=== PATIENT | female | born 1950 | race Caucasian/White ===

== ENCOUNTER 2019-08-10 12:31 | Outpatient (CLI) | payer OTHER, SELFPAY ==
--- NOTE | ~2019-08-10 | MMUS_ITS ---
EXAMINATION: MM diagnostic mammo unilat LT, US breast LT limited HISTORY: Left breast mass on screening mammogram TECHNIQUE: Additional 3-D tomosynthesis images of the left breast were performed and synthetic 2-D im ages were generated. CAD analysis was submitted and interpreted. High resolution limited left breast ultrasound was performed. COMPARISON: 07/17/2019, 06/19/2017, 10/11/2015, 05/06/2014 FINDINGS: MAMMOGRAPHIC FINDINGS: There is a 5 mm oval, obscured, equal density mass in the middle/posterior third of the inner breast at the approximately 8:00 location 7 cm from the nipple. With spot compression, this has a similar ap pearance to prior mammograms. No associated architectural distortion or calcification are seen. ULTRASOUND: No suspicious sonographically detected masses identified with heart ultrasound. There appear to be sm all lymph nodes in the breast measuring up to 2 mm at the 8:00 location 1 cm from the nipple in the 9 :00 location 6 cm from the nipple. IMPRESSION: 1. No mammographic or sonographic evidence of malignancy. 2. Recommend routine screening mammography in one year. BI-RADS Category 2: Benign finding(s). Reviewed, dictated and finalized at location A. OGICAL AIDE IMPRESSION: 1. No mammographic or sonographic evidence of malignancy. 2. Recommend routine screening mammography in one year. BI-RADS Category 2: Benign finding(s).
== END 2019-08-10 12:32 | disposition home or self-care (01) ==
LOC: ANHIMG 12:32
PROVIDERS: PCP Family Medicine; Visit Provider Family Medicine
DX: R92.8 Other abnormal and inconclusive findings on diagnostic imaging of breast (principal)
CPT/HCPCS: 76642; 77065

== ENCOUNTER 2020-10-09 07:48 | Outpatient (CLI) | payer OTHER, SELFPAY ==
--- NOTE | ~2020-10-09 | MM_ITS ---
EXAMINATION: MM screening [facility] BI w nancy HISTORY: Screening mammogram TECHNIQUE: Craniocaudal and mediolateral oblique 3-D tomosynthesis images were obtained and synthetic 2-D images were generated. CAD analysis was submitted and interpreted. COMPARISON: 08/10/2019, 07/17/2019, 06/19/2017 BREAST PARENCHYMAL COMPOSITION: The breasts are heterogeneously dense, which may obscure small masses . FINDINGS: There is no evidence of suspicious mass, calcification, or architectural distortion to sugg est malignancy in either breast. There has been no suspicious interval change. IMPRESSION: 1. No mammographic evidence of malignancy. 2. Recommend routine screening mammography in one year. BI-RADS Category 1: Negative Reviewed, dictated and finalized at location A.
== END 2020-10-09 07:49 | disposition home or self-care (01) ==
PROVIDERS: PCP Family Medicine; Visit Provider Family Medicine
DX: Z12.31 Encounter for screening mammogram for malignant neoplasm of breast (principal)
CPT/HCPCS: 77063; 77067

== ENCOUNTER 2021-09-21 01:30 | Day surgery (SDC) | payer OTHER, SELFPAY ==
[2021-09-11 13:46] VITALS: BMI 25.8
--- NOTE | 2021-09-21 07:38 | P.PNAN_ITS ---
Anes - Initial Pre Proc Eval Procedure: Operation Date: 09/21/21 09:15 Proposed Procedures p Screening Colonoscopy - Alfredo Orourke MD Date/Time: 09/21/21 07:38 Surgeon: Alfredo Orourke MD Pre Op Diagnosis: family hx of colon polpys, neoplasm screening Patient Data Age: 71 Gender: F Height: 1.68 m Weight: 72.7 kg Allergies Allergy/AdvReac Type Severity Reaction Status Date / Time bee venom protein (honey bee) Allergy Unknown Swelling Verified 09/21/21 10:40 Home Medications Medication Instructions Recorded Confirmed Type fluoxetine 10 mg capsule 10 mg PO DAILY #90 cap 03/23/21 09/11/21 Rx lisinopril 5 mg tablet 5 mg PO DAILY #90 tablet 05/07/21 09/11/21 Rx triamcinolone acetonide 0.1 % 1 applic TOPICAL TID #30 g 07/31/21 09/11/21 Rx topical cream atorvastatin 20 mg tablet 20 mg PO DAILY #90 tablet 08/17/21 09/11/21 Rx Patient hx anesthesia problems: none Family hx anesthesia problems: none Results Review: All pre-operative results and documents have been reviewed as part of the pre-operative evaluation. [facility] Past Medical History Medical History Diverticulosis of colon (without mention of hemorrhage) Essential (primary) hypertension Mixed hyperlipidemia Overweight (BMI 25.0-29.9) Surgical History Surgical History H/O eye surgery (~12/2018) H/O eye surgery (~02/2019) Family History Family History Mother Family history of mental disorder Hypertension Family history of Alzheimer's disease Sibling Hypertension Father Family history of elevated blood lipids, Onset Age: 60 Family history of cardiovascular disease, Onset Age: 60 Cerebrovascular accident, Onset Age: 60 Family history of coronary artery disease, Onset Age: 60 Grandparent Family history of malignant neoplasm of breast Social History Social History Smoking status: Former smoker Tobacco type: cigarettes Smoking end date: 06/23/91 Alcohol intake: never Substance use: never Substance use type: does not use Spiritual care concerns: No Anes - Eval Final PreProcedure Day of Procedure 09/21/21 07:38 Patient weight: overweight Heart: regular rate and rhythm Lungs: clear to auscultation and normal air movement Airway: Mallampati scale class II Neurological: alert and oriented Last oral intake: >/= 8 hours ASA classification: II Emergent: no Anesthetic plan: proceed Anesthesia type and monitoring: general GIVS Results Review: All pre-operative results and documents have been reviewed as part of the pre-operative evaluation. Informed Consent: The patient's anesthetic plan and its attendant risks and benefits were discussed with the patient/family/POA. Questions were solicited and answers provided to the satisfaction of the patient/family/POA.
[2021-09-21 10:41] VITALS: BP 179/69; PULSE 104; RESP 20; TEMP 36.8; O2SAT 100
[2021-09-21] MEDS: LACTATED RINGERS 1,000 ML 150 ML IV CONT (10:49)
--- NOTE | 2021-09-21 11:06 | WPDGICN ---
Assessment and Plan Assessment and plan (1) Family history of colonic polyps: Code(s): Z83.71 - Family history of colonic polyps Status: Acute Assessment and Plan: Patient's sister has had colon polyps for this reason patient has had surveillance colonoscopies. Most recent exam 6 years ago was unremarkable. She presents today for screening colonoscopy. (2) Fracture closed, nasal bone: Code(s): S02.2XXA - Fracture of nasal bones, initial encounter for closed fracture Status: Acute GI Consult Note Consult date/time: 09/21/21 11:06 HPI: Hannah Schafer is a 71 year old female Presents for screening colonoscopy. Patient's family history is significant that her sister has had colon polyps. Patient reports that her own weight appetite bowel movements are normal. She denies abdominal pain. She has had no bleeding. Patient experienced a fall this morning apparently had syncopal episode in a landed on her head. She has significant ecchymosis about her face. Patient was seen in the emergency room this morning felt to have a fractured nose. CT scan otherwise unremarkable. With no other fractures. Review of Systems Review of Systems: All systems reviewed & are unremarkable except as noted in HPI and below PMFSH Past Medical History Medical History Diverticulosis of colon (without mention of hemorrhage) Essential (primary) hypertension Mixed hyperlipidemia Overweight (BMI 25.0-29.9) Surgical History Surgical History H/O eye surgery (~12/2018) H/O eye surgery (~02/2019) Family History Family History Mother Family history of mental disorder Hypertension Family history of Alzheimer's disease Sibling Hypertension Father Family history of elevated blood lipids, Onset Age: 60 Family history of cardiovascular disease, Onset Age: 60 Cerebrovascular accident, Onset Age: 60 Family history of coronary artery disease, Onset Age: 60 Grandparent Family history of malignant neoplasm of breast Social History Social History Smoking status: Former smoker Tobacco type: cigarettes Smoking end date: 06/23/91 Alcohol intake: never Substance use: never Substance use type: does not use Spiritual care concerns: No Meds Home Medications and Allergies Home Medications Medication Instructions Recorded Confirmed Type fluoxetine 10 mg capsule 10 mg PO DAILY #90 cap 03/23/21 09/11/21 Rx lisinopril 5 mg tablet 5 mg PO DAILY #90 tablet 05/07/21 09/11/21 Rx triamcinolone acetonide 0.1 % 1 applic TOPICAL TID #30 g 07/31/21 09/11/21 Rx topical cream atorvastatin 20 mg tablet 20 mg PO DAILY #90 tablet 08/17/21 09/11/21 Rx Allergies Allergy/AdvReac Type Severity Reaction Status Date / Time bee venom protein (honey bee) Allergy Unknown Swelling Verified 09/21/21 10:40 Vital Signs Vital Signs - 24 hr 09/21/21 10:41 Temperature 98.2 F Pulse Rate 104 H Respiratory Rate 20 Blood Pressure 179/69 H Pulse Oximetry 100 Exam Narrative: Physical exam reveals patient be alert. Vital signs stable. HEENT exam is unremarkable. Patient is anicteric. Lungs are clear to auscultation and percussion. Heart is without murmur or extra sounds. abdomen bowel sounds are present soft nontender with no hepatosplenomegaly. Digital external rectal exam is normal.
[2021-09-21 11:42] VITALS: BP 130/67; PULSE 94; RESP 20; O2SAT 99
[2021-09-21 11:52] VITALS: BP 135/66; PULSE 82; RESP 18; O2SAT 99
[2021-09-21 12:02] VITALS: BP 152/97; PULSE 80; RESP 20; O2SAT 99
== END 2021-09-21 12:09 | disposition home or self-care (01) ==
PROVIDERS: PCP Family Medicine; Visit Provider Internal Medicine Gastroenterology
PROC: 0DJD8ZZ Inspection of Lower Intestinal Tract, Via Natural or Artificial Opening Endoscopic (ICD-10-PCS; CPT 45378; principal; 2021-09-21 09:15)
DX: Z12.11 Encounter for screening for malignant neoplasm of colon (principal); K64.8 Other hemorrhoids; K57.30 Diverticulosis of large intestine without perforation or abscess without bleeding; Z83.71 Family history of colonic polyps; S02.2XXD Fracture of nasal bones, subsequent encounter for fracture with routine healing; W19.XXXD Unspecified fall, subsequent encounter; I10 Essential (primary) hypertension; E78.2 Mixed hyperlipidemia; Z87.891 Personal history of nicotine dependence
CPT/HCPCS: 45378; J2001; J2704; J7120

== ENCOUNTER 2021-09-21 08:29 | Emergency (ER) | payer OTHER, SELFPAY ==
--- NOTE | ~2021-09-21 | CT_ITS ---
EXAMINATION: CT brain wo con, CT facial bones wo con DATE: 09/21/2021 09:41 INDICATION: Syncopal episode and fall with head and facial injury with bruising. TECHNIQUE: 1. Computed tomography (CT) of the head was performed without intravenous contrast. Sagittal and irma nal reconstructions were obtained. The mA was adjusted according to patient size. Iterative reconstru ction technique was employed. The dose-length product was 605.33 mGy-cm. 2. CT of the facial bones and maxillofacial region was performed without intravenous contrast. Sagitt al and coronal reconstructions were obtained. The dose-length product was 290.42 mGy-cm. COMPARISON: None. FINDINGS: Head CT: No fracture. No acute intracranial hemorrhage, acute infarction or abnormal extra axial fluid collect ion. There is mild scattered white matter hypoattenuation consistent with chronic small vessel ischem ic disease. Symmetric prominence of the sulci consistent with mild age-appropriate diffuse cerebral v olume loss. Ventricles are normal and symmetric. No mass/mass effect. Mastoid air cells and middle ea r cavities are clear. Maxillofacial CT: Mild soft tissue swelling at the bridge of the nose, left greater than right with minimally displaced mildly comminuted bilateral nasal bone fractures. Minimal submucosal gas along the deep margin of th e fracture. Tiny minimally displaced fracture No other maxillofacial fractures identified. Specifical ly the albright of the orbits, paranasal sinuses, zygomatic arches, pterygoid plates and mandible are in tact. Temporomandibular joints are in normal alignment. Minimal mucosal thickening the bilateral ethm oid sinuses. Orbits are normal aside from postoperative change of prior left intraocular lens replace ment. IMPRESSION: 1. Minimally displaced mildly comminuted bilateral nasal bone fractures. 2. No calvarial fracture or acute intracranial process. 3. Age-related changes including mild diffuse volume loss and mild scattered white matter hypoattenua tion consistent with chronic small vessel ischemic disease. Reviewed, dictated and finalized at location A. IMPRESSION: 1. Minimally displaced mildly comminuted bilateral nasal bone fractures. 2. No calvarial fracture or acute intracranial process. 3. Age-related changes including mild diffuse volume loss and mild scattered wh ite matter hypoattenuation consistent with chronic small vessel ischemic diseas e.
--- NOTE | ~2021-09-21 | XR_ITS ---
EXAMINATION: XR chest 1V portable DATE: 09/21/2021 09:12 INDICATION: Fall TECHNIQUE: frontal view of the chest was obtained. COMPARISON: None FINDINGS: The lungs are clear with no focal airspace opacities, pulmonary edema, pleural effusion or pneumothor ax. The cardiomediastinal silhouette is normal. Mild upper thoracic levocurvature and mid to lower th oracic dextrocurvature. IMPRESSION: 1. No acute cardiopulmonary disease. Reviewed, dictated and finalized at location A.
[2021-09-21 08:32] VITALS: BP 164/102; PULSE 93; RESP 16; TEMP 36.4; O2SAT 100
--- NOTE | 2021-09-21 08:59 | ECG_ITS ---
Measurements Intervals [place] Rate: 74 P: 54 RI: 166 QRS: 48 QRSD: 70 T: 55 QT: 384 QTc: 427 Interpretive Statements SINUS RHYTHM NORMAL ECG NO PREVIOUS ECG AVAILABLE FOR COMPARISON Electronically Signed On 09-21-2021 17:15:14 CDT by Anthony Hirsch M.D.
--- NOTE | 2021-09-21 09:04 | ED.HEATRA ---
HPI - Head Injury General Chief complaint: Head Injury Stated complaint: fall, HI Time Seen by Provider: 09/21/21 08:46 Source: RN notes reviewed History of Present Illness HPI Narrative: Patient presents emergency department from home for syncopal episode. Patient states that she was prepping for a colonoscopy this morning she states she gone to the bathroom about 4 AM this morning and had gone to the restroom and gotten up and then ended up on the floor she noted bruising across her face and a bloody nose that time that resolved. She she will back to bed reported for her colonoscopy this morning but when they found out she had a syncopal episode they sent her to the ER for further evaluation patient denies any chest pain, shortness of breath abdominal pain nausea vomiting or any other symptoms does note some tenderness across her nasal bridge Related Data Allergies Allergy/AdvReac Type Severity Reaction Status Date / Time bee venom protein (honey bee) Allergy Unknown Swelling Verified 09/21/21 09:14 Review of Systems Review of Systems: Gen.: Denies fevers or chills Eyes: Denies eye pain or visual change ENT: Denies congestion Respiratory: Denies shortness of breath or cough CV: Denies chest pain or syncopal episode GI: Denies abdominal pain nausea, emesis or diarrhea Musculoskeletal: Denies back pain or muscle pain Neuro: Denies numbness, tingling, weakness or focal weakness Skin: Denies rash Except as documented, all other systems reviewed and negative [facility] Past Medical History Medical History Diverticulosis of colon (without mention of hemorrhage) Essential (primary) hypertension Mixed hyperlipidemia Overweight (BMI 25.0-29.9) Surgical History Surgical History H/O eye surgery (~12/2018) H/O eye surgery (~02/2019) Family History Family History Mother Family history of mental disorder Hypertension Family history of Alzheimer's disease Sibling Hypertension Father Family history of elevated blood lipids, Onset Age: 60 Family history of cardiovascular disease, Onset Age: 60 Cerebrovascular accident, Onset Age: 60 Family history of coronary artery disease, Onset Age: 60 Grandparent Family history of malignant neoplasm of breast Social History Social History Smoking status: Former smoker Tobacco type: cigarettes Smoking end date: 06/23/91 Alcohol intake: never Substance use: never Substance use type: does not use Spiritual care concerns: No Exam Narrative: APPEARANCE: No acute distress, nontoxic, resting in bed EYES: EOMI, PERRL HEENT: Normocephalic, slight ecchymosis over the bilateral nasal bridge and inferior orbits range of motion of jaw without pain Neck: Supple no midline tenderness palpation for range of motion without pain RESPIRATORY: No respiratory distress Clear to auscultation bilaterally with no rhonchi wheezing or rales. CARDIOVASCULAR: Regular rate and rhythm without murmurs rubs or gallops. ABDOMINAL: Soft, nontender, nondistended, no rebound or guarding MUSCULOSKELETAl: Moves all extremities. No clubbing, cyanosis or edema. NEURO: Awake and alert x 4 Following commands, speech normal, no focal deficits SKIN:: Warm, dry. No rashes lesions or abrasions PSYCHIATRIC: Normal affect/mood, Course Course Emergency Course: Discussed with Dr. Sultana presentation work-up agrees with plan for discharge with colonoscopy this am Discussed with patient results of workup and diagnosis. Discussed need for follow-up with primary care, proper use of medication, and reasons to return to the emergency department. Patient understands and agrees to current treatment plan Vital Signs Vital signs: Vital Signs Temperature 97.6 F 09/21/21 08:32 Pulse Rate 93 04
[2021-09-21 09:42] LABS: Alanine Aminotransferase 21 U/L (4-35); Albumin Level 4.7 g/dL (3.5-5.1); Alkaline Phosphatase 97 U/L (38-126); Anion Gap 8 mmol/L (8-16); Aspartate Amino Transferase 26 U/L (14-36); Bilirubin,Total 0.7 mg/dL (0.2-1.3); Blood Urea Nitrogen 15 mg/dL (7-17); Calcium 9.3 mg/dL (8.4-10.2); Carbon Dioxide 23 mmol/L (22-30); Chloride 107 mmol/L (98-107); Estimated CRCL calculation 56 ml/min; Estimated Glomerular Filt Rate > 60; Glucose 110 mg/dL (65-110); Magnesium 2.4 mg/dL (1.6-2.3); Potassium 4.3 mmol/L (3.4-5.0); Sodium 138 mmol/L (137-145)
[2021-09-21 09:48] LABS: Prothrombin Time 12.3 Seconds (11.1-14.7)
[2021-09-21 09:49] VITALS: BP 145/79; PULSE 76
[2021-09-21 09:50] VITALS: BP 142/75; PULSE 76
[2021-09-21 09:51] VITALS: BP 137/86; PULSE 98
[2021-09-21 09:53] LABS: Troponin I < 0.012 ng/mL (0.000-0.034)
[2021-09-21 09:59] LABS: Basophils Absolute Auto 0.1 K/mm3 (0.0-0.1); Basophils Percent Auto 0.7 % (0.2-1.2); Eosinophils Percent Auto 0.2 % (0-4.4); Hematocrit 37.9 % (37.0-47.0); Hemoglobin 12.1 g/dL (12.0-15.0); Immature Granulocyte Absolute 0.02 K/mm3 (0.00-0.031); Immature Granulocyte Percent A 0.2 % (0-0.5); Lymphocytes Absolute Auto 1.97 K/mm3 (0.9-3.2); Lymphocytes Percent Auto 21.9 % (18.3-44.2); Mean Corpuscular HGB Conc 31.9 g/dl (32-36); Mean Corpuscular Hemoglobin 27.1 pg (26-34); Monocytes Absolute Auto 0.4 K/mm3 (0.1-0.6); Monocytes Percent Auto 4.7 % (2.6-8.5); Neutrophils Absolute Auto 6.5 K/mm3 (1.3-6.7); Neutrophils Percent Auto 72.3 % (45.5-73.1); Platelet Count Result 388 k/mm3 (150-375); Red Blood Count 4.46 M/mm3 (4.2-5.4); Red Cell Distribution Width 12.9 % (11.5-14.5)
[2021-09-21] MEDS: SODIUM CHLORIDE 0.9% IV 1,000 ML 999 ML IV CONT (09:59)
[2021-09-21 10:26] VITALS: BP 156/70; PULSE 74; RESP 18; O2SAT 100
== END 2021-09-21 10:31 | disposition home or self-care (01) ==
PROVIDERS: Emergency Provider Emergency Medicine; PCP Family Medicine
DX: S02.2XXA Fracture of nasal bones, initial encounter for closed fracture (principal); R55 Syncope and collapse; I10 Essential (primary) hypertension; E78.2 Mixed hyperlipidemia; E66.3 Overweight; Z68.28 Body mass index [BMI] 28.0-28.9, adult; Z87.891 Personal history of nicotine dependence; W18.39XA Other fall on same level, initial encounter
CPT/HCPCS: 36415; 70450; 70486; 71045; 80053; 83735; 84484; 85025; 85610; 85730; 93005; 96360; 99284; J7030

== ENCOUNTER → 2022-05-15 13:14 | Outpatient (CLI) | payer OTHER, SELFPAY ==
--- NOTE | ~2022-05-15 | DEXA_ITS ---
Bone Density Report Name: JULIUS TRAMMELL Age: 71 Sex: Female Ethnicity: White Date of : 1950 Indication: postmenopausal; screening for osteoporosis; height loss; Referring Provider: ZULEIMA CONTRERAS Study: Bone densitometry was performed. Exam Date: May 15, 2022 Accession number: [id number] Bone Density: Region BMD T-score Z-score Classification AP Spine (L1-L4) 1.041 -0.1 2.0 Normal Femoral Neck (Left) 0.769 -0.7 1.1 Normal Total Hip (Left) 1.047 0.9 2.3 Normal Femoral Neck (Right) 0.788 -0.6 1.2 Normal Total Hip (Right) 1.004 0.5 2.0 Normal Total Hip Mean 1.026 0.7 2.2 Normal World Health Organization criteria for BMD impression classify patients as: Normal (T-score at or above -1.0), Osteopenia (T-score between -1.0 and -2.5), or Osteoporosis (T-score at or below -2.5). 10-year Fracture Risk: FRAX not reported because: All T-scores for Spine Total, Hip Total, Femoral Neck at or above -1.0 Clinical Information Provided by Patient: Has used the following medications: Vitamin D, Calcium Patient maximum height was 67.5 Menopause Age: 59 No regular weight bearing exercise Drinks caffeinated beverages Onset of menses at age 14 Number of children 2 Impression: The patient has normal bone mass. Discussion: BONE DENSITY IS ABOVE THE MINIMUM DESIRABLE LEVEL AT ALL SKELETAL SITES TESTED. This patient?s bone mineral density is above the minimum desirable level (T-score -1.0 or better) at all sites measured. The patient should follow a healthful lifestyle (good nutrition with adequate calcium and vitamin D, and appropriate weight-bearing exercise). Follow-Up: Consider repeating this study in 5 years or sooner if there is some new clinical indication. Reported by: ELAN on 05/15/2022 1:37:00 PM. Reviewed, dictated and finalized at location AMara ANDRADE
--- NOTE | ~2022-05-15 | MM_ITS ---
EXAMINATION: MM screening [facility] BI w nancy HISTORY: Screening mammogram TECHNIQUE: Craniocaudal and mediolateral oblique 3-D tomosynthesis images were obtained and synthetic 2-D images were generated. CAD analysis was submitted and interpreted. COMPARISON: 10/09/2020 bilateral screening mammogram 08/10/2019 diagnostic left mammogram and limited left breast ultrasound 07/17/2019, 06/11/2017 bilateral screening mammogram examinations BREAST PARENCHYMAL COMPOSITION: There are scattered areas of fibroglandular density. FINDINGS: Scattered bilateral benign calcifications. There is no evidence of suspicious mass, calcifi cation, or architectural distortion to suggest malignancy in either breast. There has been no suspici ous interval change. IMPRESSION: 1. No mammographic evidence of malignancy. 2. Recommend routine screening mammography in one year. BI-RADS Category 2: Benign finding(s). Reviewed, dictated and finalized at location A. LE PULLER
== END ==
PROVIDERS: PCP Family Medicine; Visit Provider Family Medicine
DX: Z12.31 Encounter for screening mammogram for malignant neoplasm of breast (principal); Z78.0 Asymptomatic menopausal state
CPT/HCPCS: 77063; 77067; 77080

== ENCOUNTER 2024-07-06 13:53 | Outpatient (CLI) | payer OTHER, SELFPAY ==
--- NOTE | ~2024-07-06 | MM_ITS ---
EXAMINATION: MM screening [facility] w nancy HISTORY: Screening mammogram TECHNIQUE: Craniocaudal and mediolateral oblique 3-D tomosynthesis images were obtained and synthetic 2-D images were generated. CAD analysis was submitted and interpreted. COMPARISON: 05/15/2022, 10/09/2020, 08/10/2019, 07/17/2019 BREAST PARENCHYMAL COMPOSITION:Not Dense. There are scattered areas of fibroglandular density. FINDINGS: No suspicious mass, calcification, or architectural distortion are identified in either tadeo ast to suggest malignancy. There has been no suspicious interval change. IMPRESSION: No mammographic evidence of malignancy. Recommend routine screening mammography in one year. BI-RADS Category 1: Negative Reviewed, dictated and finalized at location . THREADER
== END 2024-07-06 13:54 | disposition home or self-care (01) ==
LOC: MICIMG 13:53
PROVIDERS: PCP Family Medicine; Visit Provider Family Medicine
DX: Z12.31 Encounter for screening mammogram for malignant neoplasm of breast (principal)
CPT/HCPCS: 77063; 77067

== ENCOUNTER 2024-12-22 13:25 | Outpatient (CLI) | payer OTHER, SELFPAY ==
--- OUTSIDE RECORDS SUMMARY | 2024-12-22 13:28 | XMS_ITS | Continuity of Care Document ---
Author Organization [facility] Address [address] [place] [address] Phone Care Team Providers Care Rn Child Name Role Phone Camden Trent Unavailable Unavailable Advance Directives Directive Yes / No Effective Date File Name No Information Encounters Encounter Description Practice Location Reason(s) For Visit Diagnoses Date Provider Providers Copied on Encounter [facility], [address] [place], [place], [id number], [place] tel:[phone] [facility] No Information Twan Hannah. [address] [place], [address], [place]. tel:[phone] Family History Family Member Type Diagnosis Age At Onset No Information Payers Payer name Insurance type Covered republican ID Authoriza tion(s) [employer] CI [id number] Social History Type Description Quantity Date Captured Comments Sex Female Smoking Status No Information Chief Complaint And Reason For Visit No Information Reason For Referral Reason For Referral No Information History Of Present Illness Encounter Date Complaint History Of Prese nt Illness No Information Functional Status Date Functional Assessmen t No Information Instructions Date Instruction Additional Infor mation No Information Assessments Type Assessment Date No Information Patient Care Teams Name Effective Dates (start - stop) Status Members No Information
--- OUTSIDE RECORDS SUMMARY | 2024-12-22 13:28 | XMS_ITS ---
Author Organization Unknown Medications Medication Instructions Effective Dates (start - sto p) Status fluoxetine 10 MG Oral Capsule 2023-04-08 00:00:00Z - Completed atorvastatin 40 MG Oral Tablet 2023-08-05 T00:00:00Z - Completed lisinopril 10 MG Oral Tablet [id number] 0:00:00Z - Completed atorvastatin 40 MG Oral Tablet 2023-11-30 T00:00:00Z - Completed atorvastatin 20 MG Oral Tablet 2023-06-20 T00:00:00Z - Completed atorvastatin 20 MG Oral Tablet 2023-05-22 T00:00:00Z - Completed fluoxetine 10 MG Oral Capsule 2023-11-26 00:00:00Z - Completed atorvastatin 20 MG Oral Tablet 2023-02-17 T00:00:00Z - Completed atorvastatin 40 MG Oral Tablet 2023-11-10 T00:00:00Z - Completed fluoxetine 10 MG Oral Capsule 2023-07-03 00:00:00Z - Completed fluoxetine 10 MG Oral Capsule 2023 00:00:00Z - Completed lisinopril 10 MG Oral Tablet [id number] 0:00:00Z - Completed lisinopril 5 MG Oral Tablet [id number] :00:00Z - Completed Patient Care team information Name Category Status Period Participants - - Proposed period not known -
== END 2024-12-22 13:26 | disposition home or self-care (01) ==
LOC: ANHAUDIO 13:25
PROVIDERS: PCP Family Medicine; Visit Provider Family Medicine
DX: H90.3 Sensorineural hearing loss, bilateral (principal)
CPT/HCPCS: 92557; 92567